=== PATIENT | male | born 1990 | race Two or more races ===

== ENCOUNTER 2024-02-07 19:52 | Emergency (ER) | payer BC, MEDICAID ==
[~2024-02-07] VITALS: Ht 167.6 cm; Wt 89.7 kg
[2024-02-07 19:59] VITALS: BP 122/82; PULSE 80; RESP 20; TEMP 98.3; O2SAT 96
== END 2024-02-07 21:33 | disposition home or self-care (01) ==
LOC: ER 19:52
DX: F41.9 Anxiety disorder, unspecified (principal); F10.239 Alcohol dependence with withdrawal, unspecified; Z91.018 Allergy to other foods
CPT/HCPCS: 93005